=== PATIENT | female | born 1985 | race Caucasian/White ===

== ENCOUNTER 2018-04-12 14:41 | Emergency (ER) | payer OTHER, SELFPAY ==
[2018-04-12 14:42] VITALS: BP 166/113; PULSE 99; RESP 15; TEMP 37; O2SAT 98; BMI 39.9
--- NOTE | 2018-04-12 14:57 | ED.VISSUMM ---
- ER Visit Summary Date of Service: 04/12/18 Chief Complaint: Right flank pain History of Present Illness: The patient is a 32 F past medical history depression. States that yesterday started getting right flank pain and developed nausea and vomiting and diarrhea. Diarrhea is actually been for the last 5 days. No melena. No hematemesis. No fever. No history of kidney stones. No trauma. No dysuria hematuria. No history of gallbladder disease. Physical Examination: Well-appearing young female. Vital signs are stable afebrile. Does not look septic or toxic no acute distress. Not dehydrated. H EENT exam unremarkable. Neck nontender. Lungs clear to auscultation bilaterally. Heart regular rhythm no murmur. Abdomen soft nontender. Nondistended normal bowel sounds. Moving all 4 extremities. Neurovascularly intact. She points to her right CVA area but there is no reproducible tenderness. Neurologically awake and alert no focal deficits. Test Results: CBC shows a normal white count 8 hemoglobin is 16. Electrolytes unremarkable normal creatinine and gap. Liver enzymes are normal. UA negative except for ketones secondary to being mildly dehydrated. CT abdomen and pelvis done with out contrast shows multiple small gallstones with sludge possible pericholecystic fluid and thickening. On repeat exam at 1608 abdomen remains benign. No right upper quadrant pain or Ellington sign. Due to the CT findings it was recommended to get an ultrasound. I discussed this with the patient and she preferred again today versus following up as an outpatient. Emergency Department Course and Treatment: With IV fluids, Toradol, morphine and Zofran. Treatment Plan: Follow-up with of the [facility] for evaluation of gallstones and flank pain. Disposition: Discharge Impression: Acute right flank pain secondary to biliary colic Gallstones This note was generated with [employer] dictation software. It may contain incorrect words, spelling, and punctuation that were not noted in review of the chart prior to signing ED Disposition - Plan for ED Patient: Chief Complaint: Flank Pain Referrals: Care Physician,No Primary [NON-STAFF] -
--- NOTE | 2018-04-12 15:01 | ED.DCSUM_ITS ---
- ER Visit Summary Date of Service: 04/12/18 Chief Complaint: Right flank pain History of Present Illness: The patient is a 32 F past medical history depression. States that yesterday started getting right flank pain and developed nausea and vomiting and diarrhea. Diarrhea is actually been for the last 5 days. No melena. No hematemesis. No fever. No history of kidney stones. No trauma. No dysuria hematuria. No history of gallbladder disease. Physical Examination: Well-appearing young female. Vital signs are stable afebrile. Does not look septic or toxic no acute distress. Not dehydrated. H EENT exam unremarkable. Neck nontender. Lungs clear to auscultation bilaterally. Heart regular rhythm no murmur. Abdomen soft nontender. Nondistended normal bowel sounds. Moving all 4 extremities. Neurovascularly intact. She points to her right CVA area but there is no reproducible tenderness. Neurologically awake and alert no focal deficits. Test Results: CBC shows a normal white count 8 hemoglobin is 16. Electrolytes unremarkable normal creatinine and gap. Liver enzymes are normal. UA negative except for ketones secondary to being mildly dehydrated. CT abdomen and pelvis done with out contrast shows multiple small gallstones with sludge possible pericholecystic fluid and thickening. On repeat exam at 1608 abdomen remains benign. No right upper quadrant pain or Ellington sign. Due to the CT findings it was recommended to get an ultrasound. I discussed this with the patient and she preferred again today versus following up as an outpatient. Emergency Department Course and Treatment: With IV fluids, Toradol, morphine and Zofran. Treatment Plan: Follow-up with of the [facility] for evaluation of gallstones and flank pain. Disposition: Discharge Impression: Acute right flank pain secondary to biliary colic Gallstones This note was generated with [employer] dictation software. It may contain incorrect words, spelling, and punctuation that were not noted in review of the chart prior to signing ED Disposition - Plan for ED Patient: Chief Complaint: Flank Pain Referrals: Care Physician,No Primary [NON-STAFF] -
[2018-04-12] MEDS: 0.9% Normal Saline 1,000 ML 1000 ML IV (15:09)
[2018-04-12] MEDS: Ondansetron 4 MG/2 ML Vial IV ×2 (15:09→18:05)
[2018-04-12] MEDS: Morphine 4 MG/ML Syringe IV ×3 (15:09→18:05)
[2018-04-12] MEDS: Ketorolac 30 MG/ML Syringe IV (15:09)
[2018-04-12 15:27] LABS: Absolute Lymphocyte Count 1.05 X10^3/ul (0.83-4.51); Absolute Neutrophil Count 7.5 X10^3/uL (2.0-7.7); Basophil# 0.04 X10^3/uL; Basophil% 0.5 % (0-1); Eosinophil# 0.01 X10^3/uL; Eosinophils% 0.1 % (0-5); Hematocrit 48.3 % (37-47); Hemoglobin 16.5 g/dl (12.0-15.0); Lymphocyte # 1.05 X10^3/ul (4.0); Lymphocyte % 11.9 % (19-41); Mean Corp Hgb Conc 34.2 g/gl (32-36); Mean Corpuscular Hgb 30.9 pg (27.0-32.0); Mean Corpuscular Volume 90.4 fL (81-99); Mean Platelet Vol. 10.5 fl (6.2-12.0); Monocyte# 0.26 X10^3/uL; Monocyte% 2.9 % (0-10); Neutrophil # 7.47 X10^3/uL (2.7-7.7); Neutrophil % 84.5 % (47-70); Platelet Count 264 K/mm3 (150-450); RBC Distribution Width CV 12.5 % (11.6-14.6); RBC Distribution Width SD 41.3 fl (35.1-43.9); Red Blood Count 5.34 M/mm3 (4.2-5.4); White Blood Count 8.8 K/mm3 (4.4-11.0)
[2018-04-12 15:31] LABS: Color, Urine Yellow (Yellow); Glucose, Dipstick Normal (Normal); Leukocyte Esterase-Dipstick Negative /ul (Negative); Nitrite-Dipstick Negative (Negative); Occult Blood-Urine 10 /ul (Negative); Protein-Dipstick 30 mg/dl (Negative); Urine Bilirubin Dipstick Negative (Negative); Urine Clarity Sl. Cloudy (Clear); Urine Urobilinogen Normal (Normal)
[2018-04-12 15:37] LABS: POSITIVE COUNT NO; POSITIVE DIFFERENTIAL NO; POSITIVE MORPHOLOGY NO
[2018-04-12 15:46] LABS: AST(SGOT) 19 U/L (15-37); Alanine Aminotransfer ALT/SGPT 29 U/L (13-56); Albumin, Serum 4.1 g/dL (3.2-5.0); Alkaline Phosphatase 52 U/L (45-117); Anion Gap 7 (5-15); BUN 6 mg/dL (7-18); BUN/Creat Ratio 7.4 RATIO (10-20); Bilirubin, Direct 0.12 mg/dL (0.00-0.30); Calcium,Total 9.1 mg/dL (8.5-10.1); Chloride 103 mmol/L (98-107); Creatinine, Serum 0.81 mg/dL (0.55-1.02); EST Glomerular Filtration Rate 87 mL/min (>60); Est Glom Filt Rate - Afr Amer 106 mL/min (>60); Estimated Creatinine Clearance 89.72 ml/min; Globulin 4.9 g/dL (2.2-4.2); Glucose 102 mg/dL (74-106); Potassium 3.9 mmol/L (3.5-5.1); Sodium Level 138 mmol/L (136-145)
[2018-04-12 15:47] LABS: Ketone-Dipstick 150 mg/dl (Negative)
[2018-04-12 15:49] LABS: Bacteria 2+ /hpf (None Seen); Mucous, Urine 1+ /hpf (<or=2+); Red Blood Cells-Urine 0-5 SEEN /hpf (0-5); Squamous Epithelial Cells - UA 0-5 SEEN /hpf (5-10); White Blood Cells 0-5 SEEN /hpf (0-5)
--- NOTE | 2018-04-12 16:12 | ED.DEP ---
ED Disposition - Plan for ED Patient: Disposition: Home or Assisted Living Chief Complaint: Flank Pain Instructions: ED Abdominal Pain Gallstone Poss Prescriptions: Ondansetron [Zofran Odt] 4 mg PO Q4H PRN PRN #10 tab.rapdis PRN Reason: Nausea Referrals: Saloni Phillips MD [STAFF PHYSICIAN] - As soon as possible Additional Instructions: Call and follow-up with Dr. Phillips 1 of the general surgeons at the [facility]. Motrin for pain. As needed. Zofran for nausea. Return if increasing and worsening pain, fever or intractable vomiting. Otherwise follow-up with further evaluation of your gallbladder with gallstones that may be causing your flank pain.
--- NOTE | 2018-04-12 16:16 | DCINST.ED_ITS ---
ED Disposition - Plan for ED Patient: Disposition: Home or Assisted Living Chief Complaint: Flank Pain Instructions: ED Abdominal Pain Gallstone Poss Prescriptions: Ondansetron [Zofran Odt] 4 mg PO Q4H PRN PRN #10 tab.rapdis PRN Reason: Nausea Referrals: Saloni Phillips MD [STAFF PHYSICIAN] - As soon as possible Additional Instructions: Call and follow-up with Dr. Phillips 1 of the general surgeons at the [facility]. Motrin for pain. As needed. Zofran for nausea. Return if increasing and worsening pain, fever or intractable vomiting. Otherwise follow-up with further evaluation of your gallbladder with gallstones that may be causing your flank pain.
[2018-04-12 16:19] VITALS: BP 134/94; PULSE 78; RESP 16; O2SAT 95
--- NOTE | 2018-04-12 18:42 | PCM.CONS.B ---
- Consult Date of Consult: 04/12/18 - Reason for Consult Chief Complaint: right flank pain, findings of cholelithiasis History of Present Illness: 32 y/o WF presents to the ED with right flank pain. Initial evaluation with diagnosis of kidney stone, however, CT scan obtained which revealed cholelithiasis with thickened gallbladder wall. US gallbladder - gallbladder wall is 7mm and edematous appearing, no pericholecystic fluid, multiple shadowing stones and sludge WBC 8.8K, LFTs normal. States pain began yesterday. Denies anterior abdominal pain. Patient has had loose stools for the past few days. Denies fevers. Denies nausea/emesis. Past Medical History: obesity Past Surgical History: csection pilonidal cyst surgery Medications: zoloft Allergies: Has no known drug allergies Social history: TOB use denies Occupation: teacher Review of Systems: General - denies fevers, denies weight loss Cardiovascular denies chest pain, denies history of heart attack Pulmonary denies shortness of breath, denies coughing up blood Gastrointestinal as per HPI, denies blood in stools Neurological denies numbness/weakness of extremities, denies seizures Genitourinary denies burning with urination, denies blood in urine Hematological denies spontaneous\prolonged bleeding Skin denies open non healing wounds, denies rashes Musculoskeletal denies chronic joint/back pain Endocrine denies diabetes Psychological denies hallucinations Physical examination: Vital signs Temp 98.6F HR 99 RR 15 BP 166/113 Ht: 5' 5.5 Wt: 1244# General WD/WN WF in no apparent distress, alert and oriented HEENT Normocephalic. EOM intact with sclera clear and no icterus noted. Neck is supple with no jugular venous distention noted. Trachea is midline. Lungs clear to auscultation. normal breath sounds in all lung huitron. No rales/rhonchi/wheezing noted. No labored breathing noted, such as retractions. Heart regular. Abdomen soft and benign and no tenderness to deep palpation of the right upper quadrant. Normal bowel sounds, cannot determine if any masses or organomegaly due to body habitus Extremities no calf tenderness noted. No pitting edema noted. Genitourinary/Rectal deferred Skin normal skin integrity. Neurological gait normal, no focal deficits noted. Psychological normal affect, patient is calm and appropriate Impression: right flank pain cholelithiasis with thickened wall - c/w cholecystitis Discussion/Plan: I have discussed the above with the patient. I have offered the patient the procedure of laparoscopic cholecystectomy, possible cholangiograms. I have explained the procedure to the patient. I have counseled the patient as to the risks of the procedure, including but not limited to: infection, bleeding, injury to any blood vessels/nerves, scar tissue, injury to any intraabdominal organs, injury to kidney/ureters, injury to bowel/bladder, injury to the common bile duct/biliary tree, bile leakage, intraabdominal abscess/bleeding, hernias at incisional sites, wound infections, possible open procedure, complications of anesthesia, postoperative pneumonia/cardiac problems/blood clots etc. the patient understands. I have offered surgery for Sunday. I have offered to admit patient to hospital versus contacting patient Sunday morning for time to come in to hospital for surgery. She opts for latter. I have answered all questions to the patients satisfaction and the patient has no further questions. Contact number: [phone] To be discharged on antibiotics - augmentin and pain medications The OR team will contact patient on Sunday for time to come in to ASC.
--- NOTE | 2018-04-12 18:54 | ED.DEP ---
ED Disposition - Plan for ED Patient: Disposition: Home or Assisted Living Chief Complaint: Flank Pain Instructions: ED Abdominal Pain Gallstone Poss Prescriptions: Hydrocodone Bitart/Apap 5-325 [[place] 5MG-325MG] 1 tab PO Q4H PRN PRN 2 Days #10 tab PRN Reason: Pain Ondansetron [Zofran Odt] 4 mg PO Q4H PRN PRN #10 tab.rapdis PRN Reason: Nausea Amox/Clavulanate Tablet [Augmentin Tablet] 875 mg PO Q12H #20 tab Referrals: Saloni Phillips MD [STAFF PHYSICIAN] - As soon as possible Additional Instructions: Call and follow-up with Dr. Phillips 1 of the general surgeons at the [facility]. Return if increasing and worsening pain, fever or intractable vomiting. Follow-up with Dr. Phillips for surgery as scheduled. If you have fever chills or worsening pain return to the emergency department.
[2018-04-12 19:22] VITALS: BP 143/87; PULSE 76; RESP 16; O2SAT 97
== END 2018-04-12 19:24 | disposition home or self-care (01) ==
PROVIDERS: Emergency Provider Emergency Medicine; Family Provider Family Medicine; PCP Family Medicine
DX: K80.20 Calculus of gallbladder without cholecystitis without obstruction (principal); K80.50 Calculus of bile duct without cholangitis or cholecystitis without obstruction; F32.9 Major depressive disorder, single episode, unspecified
CPT/HCPCS: 74176; 76705; 80048; 80076; 81001; 85025; 96361; 96374; 96375; 96376; 99284; J7050; A4216; J2405

== ENCOUNTER 2018-04-15 12:58 | Day surgery (SDC) | payer OTHER, SELFPAY ==
[2018-04-15 13:32] VITALS: BP 133/76; PULSE 70; RESP 18; TEMP 36.5; O2SAT 98; BMI 38.7
[2018-04-15 13:44] LABS: Internal QC Validated? YES +Cl - CLEAR BKGD; Pregnancy, Urine Negative Negative
--- NOTE | 2018-04-15 14:41 | PCM.DC.GB ---
Discharge Diet: No Restrictions - drink plenty of fluids, avoid carbonated beverages for a couple of days Discharge Activity: Return to Normal Activity Lifting Restrictions: no lifting greater than 20 pounds for two weeks Call your doctor if your incision/area has: Continuous Slow Oozing, Foul Smelling Discharge Call your doctor if you observe: Fever of 101 or Higher Additional Dressing/Incision Instructions:: Leave dressings in place. May get wet in shower. Do not soak - no tub baths/swimming Allergies/Adverse Reactions: Allergies No Known Allergies Allergy (Unverified 04/12/18 14:41) Medications to take at Discharge norgestimate-ethinyl estradiol 0.18 mg/0.215mg/0.25mg-35 mcg(28)tablet 1 tab PO QDAY 02/12/18 sertraline 50 mg tablet 50 mg PO QDAY 02/12/18 Amox/Clavulanate Tablet [Augmentin Tablet] 875 mg PO Q12H #20 tab 04/12/18 Hydrocodone Bitart/Apap 5-325 [[place] 5MG-325MG] 1 tab PO Q4H PRN PRN 2 Days #10 tab 04/12/18 Ondansetron [Zofran Odt] 4 mg PO Q4H PRN PRN #10 tab.rapdis 04/12/18 Primary Care Physician: Neno Mello MD [Primary Care Provider] - Test Results: Test results from this visit will be discussed in further detail at your follow-up appointment, if applicable. Please Follow Up With: Saloni Phillips MD - call When: in 10-14 days, please call for date and time, thank you
--- NOTE | 2018-04-15 14:42 | PCM.IMDPSTOP ---
Immediate Post-Op Note Date of Procedure: 04/15/18 Primary Surgeon/Physician: Saloni Phillips sql data analyst: Isaias Ford Pre-Operative Diagnosis: cholelithiasis, chronic cholecystitis Post-Operative Diagnosis: cholelithiasis, cholecystitis - acute on chronic, obstruction/hydrops Surgery/Procedure Performed:: laparoscopic cholecystectomy with cholangiograms Description of Surgical Findings:: intraoperative cholangiograms could not be done, could not identify cystic duct adequately Estimated Blood Loss: 20 ml Specimen's removed: gallbladder and contents Type of Anesthesia:: General ASA Class: ASA2 Mod Systematic Disease - Admit VTE Documentation VTE Present on Admission: Yes VTE Mechan Device Prophylaxis: SCD's
[2018-04-15] MEDS: Bupiv/Epi 0.5% Mpf 30 ML Vial (15:03)
--- NOTE | 2018-04-15 16:26 | PCM.OPRPT ---
Report of Operation Date of Procedure: 04/15/18 Pre-Operative Diagnosis: cholelithiasis, chronic cholecystitis Post-Operative Diagnosis: cholelithiasis, cholecystitis - acute on chronic, obstruction/hydrops Surgery/Procedure Performed:: laparoscopic cholecystectomy with cholangiograms Description of Surgical Findings:: intraoperative cholangiograms could not be done, cystic duct lumen - too small to pass catheter parking technician: Isaias Ford Type of Anesthesia:: General Anesthesiologist: Ash Isaacs Specimen's removed: gallbladder and contents Estimated Blood Loss (mL): 20 ml Fluids Replaced: 1000 ml RL Description of Procedure: After informed consent was given, the patient was brought to the Operating Room. Appropriate time out protocol was followed. The patient was then placed under general endotracheal anesthesia. The abdomen was then prepped with a sterile surgical skin preparation and sterile surgical drapes were placed. A skin fold superior to the umbilicus was grasped with penetrating clamps and the skin and subcutaneous tissues were infiltrated with 0.5% marcaine with epinephrine. A skin incision was then made with a 15 blade scalpel. The anterior abdominal wall was elevated and a Veress needle was carefully inserted into the intraabdominal cavity. It was checked to be in the proper position with a normal saline drop test. A CO2 pneumoperitoneum was then created. Once this was achieved, then the Veress needle was removed and an 11mm trocar was placed in its stead. A 10mm laparoscope was then inserted into the trocar and careful attention was directed to the intraabdominal contents. There was no evidence of injury to any intraabdominal organs from insertion of the Veress needle or the trocar. Under direct visualization, a 5mm subxiphoid trocar and two lateral 5mm right subcostal trocars were placed. The skin and subcutaneous tissues at these sites were infiltrated with 0.5% marcaine with epinephrine prior to placement of these trocars. Attention was then directed to the right upper quadrant of the abdomen. The gallbladder was distended. The wall was edematous. There was omentum adhesed to the free surface of the gallbladder, this was taken down by blunt dissection. Graspers were placed in the lateral trocars to grasp the distal aspect of the gallbladder and direct it cephalad and to grasp the gallbladder at Hartmans pouch and direct it laterally. Dissection then began on the proximal gallbladder continuing down to the area of the triangle of Calot to bluntly dissect out the structures. There was a large amount of inflammation in this area due to the cholecystitis. The cystic duct was identified, however the lumen was too small to be able to pass a catheter for a cholangiogram. The corrigan of the duct were thickened. A clip was then placed on the neck of the gallbladder. Two clips were placed proximally and the cystic duct was then transected. The cystic artery was visualized and bluntly isolated and then two clips were placed proximally and one clip distally and then it was transected between the proximal and distal clips. The gallbladder was then from the liver bed using electrocautery. It was then placed in an endobag and brought out via the umbilical port. It was then forwarded to pathology for analysis. The liver bed was carefully examined. There was no evidence of bile leakage or bleeding. The cystic duct stump and cystic artery stump had their clips intact and there was no evidence of bile leakage or bleeding. The remainder of the abdomen was grossly normal. The CO2 was released and all trocars removed intact. The periumbilical fascia was approximated with a [id number] 0 vicryl suture. All skin incision were closed with 4-0 monocryl in a subdermal fashion. Cavilol and Steristrips were used to reinforce the skin closure. Sterile dressings were applied to all wounds. The patient was extubated and brought to the Recovery Room in stable condition. - Complications none noted - Admit VTE Documentation VTE Present on Admission: Yes VTE Mechan Device Prophylaxis: SCD's
[2018-04-15 16:32] VITALS: BP 121/76; BP 133/76; PULSE 76; RESP 18; TEMP 36.5; O2SAT 95
[2018-04-15 16:45] VITALS: BP 133/76; BP 133/86; PULSE 85; RESP 16; O2SAT 100
[2018-04-15 17:00] VITALS: BP 117/81; BP 133/76; PULSE 73; RESP 18; TEMP 36.6; O2SAT 95
[2018-04-15 17:20] VITALS: BP 133/76
--- NOTE | 2018-04-16 09:35 | GALL_PTH ---
PATIENT: NEL SCHMID LOC: [facility] [place][id number] AGE/SX: 32/F ROOM: RE04/15/[address]: Dr. Saloni Phillips MD : 1985 BED: DIS: 04/15/2018 SPEC #: [id number] RECD: 04/16/18 13:33 STATUS: GIANCARLO REArcadio #: [id number] RANDAL: 04/16/18 09:[address]: Saloni Phillips DEPT: SURGICAL PATHOLOGY RECD BY: Bentley Moralez ENTERED: 04/16/18 13:33 SP TYPE: ZULEMA NUÑEZ DR: Dr. Neno Mello MD Tissues: Gallbladder, NOS Procedures: Surgery Specimen Level III HEADER OPERATION: Laparoscopic cholecystectomy with intraoperative cholangiogram PRE-OP DIAGNOSIS: Cholelithiasis TISSUE SUBMITTED: Gallbladder MICROSCOPIC DIAGNOSIS Gallbladder, cholecystectomy: Chronic cholecystitis and cholelithiasis. AM:nubia 8/22/18 MICROSCOPIC DESCRIPTION Slides are reviewed. GROSS DESCRIPTION Received is one container labeled with the patient's name and designated gallbladder. The specimen consists of a previously, partially opened gallbladder measuring 9 cm in length and up to 3 cm in diameter. The external surface is pink-ramirez, smooth and glistening for the most part. Focally it is granular, hemorrhagic and contains cautery artifact. The gallbladder does not show any amount of bile. Present in the gallbladder and also in the container are multiple multifaceted orange-brown stones and stone fragments measuring in aggregate 5 x 5 x 1.5 cm and 0.1 to 1.5 cm in greatest dimension. The mucosa is bile-stained and without any mass lesions. The gallbladder wall measures 0.3 to 1 cm in thickness. An increased amount of subserosal fat is noted. The gallbladder wall at the cystic duct opening measures up to 0.6 cm in thickness. Cut Off Machine Helper sections from the gallbladder and the cystic duct are submitted in two cassettes. / SJ:nubia 04/16/18 TC:3 CPT: 46237
== END 2018-04-15 17:23 | disposition home or self-care (01) ==
LOC: SDC 13:00 → AC 13:01
PROVIDERS: Family Provider Family Medicine; PCP Family Medicine; Visit Provider Surgery
PROC: (CPT 47610; principal; 2018-04-15 09:15)
DX: K80.13 Calculus of gallbladder with acute and chronic cholecystitis with obstruction (principal); K82.1 Hydrops of gallbladder; J45.909 Unspecified asthma, uncomplicated; F32.9 Major depressive disorder, single episode, unspecified; E66.9 Obesity, unspecified; Z68.38 Body mass index [BMI] 38.0-38.9, adult; Z79.899 Other long term (current) drug therapy
CPT/HCPCS: 00790; 47562; 81025; 88304; J7120

== ENCOUNTER → 2019-11-13 16:55 | Outpatient (CLI) | payer OTHER, SELFPAY ==
[2019-11-13 14:38] VITALS: BMI 38.7
[2019-11-19 14:26] LABS: HPV APTIMA, High Risk Negative (Negative)
== END ==
PROVIDERS: PCP Family Medicine; Referring Provider Obstetrics & Gynecology; Visit Provider Obstetrics & Gynecology
DX: Z12.4 Encounter for screening for malignant neoplasm of cervix (principal)
CPT/HCPCS: 87624; 88175; G0145

== ENCOUNTER → 2020-01-10 09:55 | Outpatient (CLI) | payer OTHER, SELFPAY ==
[2020-01-09 10:01] VITALS: BMI 38.7
[2020-01-10 10:57] LABS: Cholesterol 201 mg/dL (200); Glucose 94 mg/dL (74-106); High Density Lipoprotein 63 mg/dL; Triglycerides 135 mg/dL; Very Low Density Lipoprotein 27 mg/dL (5-40)
[2020-01-12 08:47] LABS: Vitamin D,25 Hydroxy 41.8 ng/mL
== END ==
PROVIDERS: PCP Family Medicine; Referring Provider Obstetrics & Gynecology; Visit Provider Obstetrics & Gynecology
DX: E55.9 Vitamin D deficiency, unspecified (principal); Z13.1 Encounter for screening for diabetes mellitus; Z13.220 Encounter for screening for lipoid disorders
CPT/HCPCS: 36415; 80061; 82306; 82947

== ENCOUNTER → 2020-11-29 17:18 | Outpatient (CLI) | payer OTHER, SELFPAY ==
[2020-11-29 15:48] VITALS: BMI 38.4
[2020-12-02 21:01] LABS: HPV APTIMA, High Risk Negative (Negative)
== END ==
PROVIDERS: PCP Family Medicine; Visit Provider Obstetrics & Gynecology
DX: Z12.4 Encounter for screening for malignant neoplasm of cervix (principal)
CPT/HCPCS: 87624; 88175; G0145

== ENCOUNTER → 2020-12-06 14:19 | Outpatient (CLI) | payer OTHER, SELFPAY ==
[2020-11-29 15:48] VITALS: BMI 38.4
--- NOTE | 2020-12-06 14:26 | BI_ITS ---
MAMMOGRAPHY - BILATERAL DIAGNOSTIC REASON FOR EXAM: Female, 35 years old. Palpable abnormality in the lower inner quadrant of the left breast. PERTINENT HISTORY: TECHNIQUE: Digital bilateral breast henrry (3D mammographic acquisition) in the CC and MLO projections. 2-D mediolateral oblique (MLO) and craniocaudad (CC) views of both breasts were obtained. CAD: Full Field Digital Mammography with Computer Added Detection was performed. COMPARISON: None. Baseline examination. FINDINGS: Breast Composition: There are scattered areas of fibroglandular density. There are no dominant masses or suspicious calcifications. No other significant abnormalities are identified. BI/DIAG MAMM W/CAD, BILAT IMPRESSION: Negative diagnostic mammogram. With the patient''s history of palpable lump, correlation with ultrasound is recommended. ASSESSMENT CATEGORY: BIRADS Category 0: Incomplete. Need additional imaging evaluation. A letter regarding these results will be sent to the patient by the facility within 30 days. Approximately 10% of breast cancers are not detected by mammography. A normal mammogram should not delay biopsy of a clinically suspicious abnormality. Electronically Signed: Felix Houser MD at 15:54 EDT , Service support ,
--- NOTE | 2020-12-06 14:26 | US_ITS ---
STUDY: ULTRASOUND BREAST - RIGHT REASON FOR EXAM: Female, 35 years old. Palpable lump in the right breast. TECHNIQUE: Axial and longitudinal images of the RIGHT breast were performed with a high resolution ultrasound transducer. # OF IMAGES: 23 COMPARISON: Comparison is made with prior mammogram done earlier today. FINDINGS: RIGHT Breast: The inferior inner quadrant of the breast was examined. No sonographic abnormality is seen. IMPRESSION: No sonographic abnormality is seen. ASSESSMENT CATEGORY: BIRADS Category 1: Negative. A letter regarding these results will be sent to the patient by the facility within 30 days. Electronically Signed: Felix Houser MD at 15:55 EDT , Service support , STUDY: ULTRASOUND BREAST - LEFT REASON FOR EXAM: Female, 35 years old. Palpable lump left breast. TECHNIQUE: Axial and longitudinal images of the LEFT breast were performed with a high resolution ultrasound transducer. # OF IMAGES: 23 COMPARISON: Comparison is made with prior mammogram done earlier in the day. FINDINGS: LEFT Breast: The lower inner quadrant of the breast was examined by ultrasound. No sonographic abnormality is seen. US/Breast Limited Unilateral IMPRESSION: No sonographic abnormality is seen. ASSESSMENT CATEGORY: BIRADS Category 1: Negative. A letter regarding these results will be sent to the patient by the facility within 30 days. Electronically Signed: Felix Houser MD at 15:56 EDT , Service support ,
== END ==
PROVIDERS: PCP Family Medicine; Referring Provider Obstetrics & Gynecology; Visit Provider Obstetrics & Gynecology
DX: N63.0 Unspecified lump in unspecified breast (principal); N63.10 Unspecified lump in the right breast, unspecified quadrant
CPT/HCPCS: 76642; 77062; 77066; G0279

== ENCOUNTER → 2022-09-26 | Outpatient (CLI) | payer OTHER, SELFPAY ==
[2022-09-26 13:00] LABS: Cholesterol 173 mg/dL (200); Glucose 84 mg/dL (74-106); High Density Lipoprotein 62 mg/dL; Triglycerides 56 mg/dL; Very Low Density Lipoprotein 11 mg/dL (5-40)
== END | disposition home or self-care (01) ==
LOC: LAB 11:31
PROVIDERS: PCP Family Medicine; Visit Provider Obstetrics & Gynecology
DX: Z13.1 Encounter for screening for diabetes mellitus (principal); Z68.41 Body mass index [BMI] 40.0-44.9, adult; Z13.220 Encounter for screening for lipoid disorders; E66.9 Obesity, unspecified; Z71.3 Dietary counseling and surveillance
CPT/HCPCS: 36415; 80061; 82947; 83036

== ENCOUNTER → 2024-02-05 | Outpatient (CLI) | payer OTHER, SELFPAY ==
[2024-02-05 12:01] LABS: Absolute Lymphocyte Count 2.23 X10^3/uL (0.83-4.51); Absolute Neutrophil Count 3.9 X10^3/uL (2.0-7.7); Basophil# 0.05 X10^3/uL; Basophil% 0.7 % (0-1); Eosinophil# 0.38 X10^3/uL; Eosinophils% 5.3 % (0-5); Hematocrit 44.2 % (37-47); Hemoglobin 14.7 g/dL (12.0-15.0); Lymphocyte # 2.23 X10^3/ul (0.83-4.51); Lymphocyte % 31.3 % (19-41); Mean Corp Hgb Conc 33.3 g/dL (32-36); Mean Corpuscular Hgb 30.2 pg (27.0-32.0); Mean Corpuscular Volume 90.9 fL (81-99); Mean Platelet Vol. 10.9 fl (6.2-12.0); NRBC Flagged by Analyzer 0 % (0-5); Neutrophil # 3.93 X10^3/uL (2.7-7.7); Neutrophil % 55.1 % (47-70); Platelet Count 301 K/mm3 (150-450); RBC Distribution Width CV 12.7 % (11.6-14.6); RBC Distribution Width SD 41.7 fl (35.1-43.9); Red Blood Count 4.86 M/mm3 (4.2-5.4); White Blood Count 7.1 K/mm3 (4.4-11.0)
[2024-02-05 12:25] LABS: Hemoglobin A1c 5.2 % (3.8-5.6)
[2024-02-05 12:28] LABS: Vitamin D,25 Hydroxy 42.5 ng/mL
[2024-02-05 12:40] LABS: ALB/GLOB Ratio 0.9 RATIO (0.9-2.4); AST(SGOT) 22 U/L (15-37); Alanine Aminotransfer ALT/SGPT 31 U/L (13-56); Albumin, Serum 3.8 g/dL (3.2-5.0); Alkaline Phosphatase 56 U/L (45-117); Anion Gap 3 (5-15); BUN 7 mg/dL (7-18); BUN/Creat Ratio 10.8 RATIO (10-20); Chloride 105 mmol/L (98-107); Cholesterol 185 mg/dL (200); Creatinine, Serum 0.65 mg/dL (0.55-1.02); EST Glomerular Filtration Rate 108 mL/min (>60); Est Glom Filt Rate - Afr Amer 131 mL/min (>60); Globulin 4.1 g/dL (2.2-4.2); Glucose 92 mg/dL (74-106); High Density Lipoprotein 54 mg/dL; Potassium 4.1 mmol/L (3.5-5.1); Protein, Total 7.9 g/dL (6.4-8.2); Sodium Level 135 mmol/L (136-145); Thyroid Stim Hormone (TSH) 1.56 uIU/mL (0.358-3.74); Triglycerides 68 mg/dL; Very Low Density Lipoprotein 14 mg/dL (5-40)
== END | disposition home or self-care (01) ==
LOC: PAVLAB 11:22
PROVIDERS: PCP Family Medicine; Referring Provider Obstetrics & Gynecology; Visit Provider Obstetrics & Gynecology
DX: Z71.3 Dietary counseling and surveillance (principal); Z13.29 Encounter for screening for other suspected endocrine disorder
CPT/HCPCS: 36415; 80053; 80061; 82306; 83036; 84443; 85025

== ENCOUNTER → 2025-01-30 | Outpatient (CLI) | payer OTHER, SELFPAY ==
[2025-01-30 08:58] LABS: Absolute Lymphocyte Count 1.67 X10^3/uL (0.83-4.51); Absolute Neutrophil Count 3.4 X10^3/uL (2.0-7.7); Basophil# 0.05 X10^3/uL; Basophil% 0.9 % (0-1); Eosinophil# 0.21 X10^3/uL; Eosinophils% 3.6 % (0-5); Hematocrit 43.4 % (37-47); Lymphocyte # 1.67 X10^3/ul (0.83-4.51); Lymphocyte % 28.5 % (19-41); Mean Corp Hgb Conc 34.6 g/dL (32-36); Mean Corpuscular Hgb 31.4 pg (27.0-32.0); Mean Platelet Vol. 10.6 fl (6.2-12.0); Monocyte# 0.46 X10^3/uL; Monocyte% 7.9 % (0-10); NRBC Flagged by Analyzer 0 % (0-5); Neutrophil # 3.43 X10^3/uL (2.7-7.7); Neutrophil % 58.6 % (47-70); Platelet Count 302 K/mm3 (150-450); RBC Distribution Width CV 12.4 % (11.6-14.6); RBC Distribution Width SD 41.7 fl (35.1-43.9); Red Blood Count 4.77 M/mm3 (4.2-5.4); White Blood Count 5.9 K/mm3 (4.4-11.0)
[2025-01-30 09:25] LABS: Hemoglobin A1c 5.5 % (<=5.6)
[2025-01-30 09:28] LABS: ALB/GLOB Ratio 1.3 RATIO (0.9-2.4); AST(SGOT) 30 U/L (<=31); Alanine Aminotransfer ALT/SGPT 31 U/L (<=34); Albumin, Serum 4.3 g/dL (3.5-5.0); Alkaline Phosphatase 56 U/L (35-104); Anion Gap 10 (5-15); BUN 8 mg/dL (4-19); Calcium,Total 9.3 mg/dL (7.6-11.0); Carbon Dioxide 26.2 mmol/L (21.0-32.0); Chloride 101 mmol/L (98-108); EST Glomerular Filtration Rate 113 (>60); Globulin 3.2 g/dL (2.2-4.2); Glucose 102 mg/dL (70-99); Potassium 4.2 mmol/L (3.3-5.1); Protein, Total 7.4 g/dL (5.9-8.4); Sodium Level 138 mmol/L (133-145); Total Bilirubin 0.46 mg/dL (0.00-1.30)
== END | disposition home or self-care (01) ==
LOC: LAB 08:43
PROVIDERS: PCP Family Medicine; Referring Provider Obstetrics & Gynecology; Visit Provider Obstetrics & Gynecology
DX: E66.89 Other obesity not elsewhere classified (principal); Z68.41 Body mass index [BMI] 40.0-44.9, adult
CPT/HCPCS: 36415; 80053; 83036; 85025

== ENCOUNTER → 2025-05-18 | Outpatient (CLI) | payer OTHER, SELFPAY ==
[2025-05-18 13:16] LABS: Cholesterol 170 mg/dL (<=200); Low Density Lipoprotein Calc. 109 mg/dL; Triglycerides 70 mg/dL; Very Low Density Lipoprotein 14 mg/dL (5-40); cholesterol:hdl ratio screen 3.61
== END | disposition home or self-care (01) ==
PROVIDERS: PCP Family Medicine; Referring Provider Obstetrics & Gynecology; Visit Provider Obstetrics & Gynecology
DX: Z12.4 Encounter for screening for malignant neoplasm of cervix (principal); Z13.220 Encounter for screening for lipoid disorders; Z13.29 Encounter for screening for other suspected endocrine disorder
CPT/HCPCS: 36415; 80061; 84443; 87624; 88175; G0145